=== PATIENT | female | born 1980 | race American Indian/Alaskan Native ===

== ENCOUNTER 2018-04-14 20:48 | Emergency (ER) | payer OTHER ==
[2018-04-14 20:48] VITALS: BMI 34.4
[2018-04-14] MEDS ORDERED: Sodium Chloride 0.9% 1,000 ML IV ONE (23:17)
[2018-04-14] MEDS ORDERED: Albuterol-Ipratrop 3 mg / 0.5 (3 ml) UD INH STA (23:18)
[2018-04-14] MEDS ORDERED: Albuterol-Ipratrop 3 mg / 0.5 (3 ml) UD ONE (23:28)
[2018-04-14 23:31] LABS: BASO # 0.1 K/uL (0.0-0.2); BASO % 1.4 % (0.0-2.0); EOS # 0.2 K/uL (0.0-0.7); EOS % 3.7 % (0.0-4.0); HEMOGLOBIN 9.4 g/dL (11.0-16.0); LYMPH # 1.7 K/uL (1.0-4.3); MEAN CORPUSCULAR HEMOGLOBIN 21.9 pg (27.0-31.0); MEAN CORPUSCULAR HGB CONC 31.6 g/dL (33.0-37.0); MEAN PLATELET VOLUME 8.7 fL (7.2-11.7); MONO # 0.4 K/uL (0.0-0.8); MONO % 8.4 % (0.0-10.0); NEUT # 2.9 K/uL (1.8-7.0); NEUT % 54.5 % (50.0-75.0); RBC 4.28 Mil/uL (3.80-5.20); RED CELL DISTRIBUTION WIDTH 18.6 % (11.5-14.5); WHITE BLOOD COUNT 5.3 K/uL (4.8-10.8)
[2018-04-14 23:50] LABS: ALB/GLOB RATIO 1.4 (1.0-2.1); ALBUMIN 3.9 g/dL (3.5-5.0); BLOOD UREA NITROGEN 10 mg/dL (7-17); CALCIUM 8.7 mg/dl (8.6-10.4); GFR NON-AFRICAN AMERICAN > 60
[2018-04-14 23:51] LABS: ALT/SGPT 43 U/L (9-52); AST/SGOT 32 U/L (14-36)
[2018-04-14 23:52] LABS: B-TYPE NATRIURETIC PEPTIDE 50.7 pg/mL (0-450)
--- NOTE | 2018-04-15 00:08 | C.PDOC ---
History Of Present Illness 37 year old female with PMHx of asthma presents to the ED c/o SOB like her prior asthma attacks. Patient reports she has history of PE that occured after child . Patient is not using any asthma inhalers or anticoagulants at this time. Patient denies fever, chills, CP, palpitations, leg swelling, dizziness. <Duran Padilla - Last Filed: 04/15/18 00:33> History Per: Patient History/Exam Limitations: no limitations Onset/Duration Of Symptoms: Days Current Symptoms Are (Timing): Still Present Initiating Event: Upper Respiratory Illness Quality: "Pain" Current Respiratory Medications: See Home Med List Recent travel outside of the [place]: No Additional History Per: Patient <Duran Padilla - Last Filed: 04/15/18 00:33> <Lidia Vogel - Last Filed: 04/15/18 01:44> Time Seen by Provider: 04/14/18 23:01 Chief Complaint (Nursing): Shortness Of Breath Past Medical History Reviewed: Historical Data, Nursing Documentation, Vital Signs Vital Signs: Last Vital Signs Temp 98.8 F 04/14/18 22:34 Pulse 87 04/14/18 22:34 Resp 16 04/14/18 22:34 BP 140/92 H 04/14/18 22:34 Pulse Ox 100 04/14/18 22:34 - Medical History PMH: Anemia, Asthma Denies: Chronic Kidney Disease Surgical History: No Surg Hx Family History: States: Unknown Family Hx - Social History Hx Tobacco Use: No Hx Alcohol Use: Yes Hx Substance Use: No - Immunization History Hx Tetanus Toxoid Vaccination: No Hx Influenza Vaccination: No Hx Pneumococcal Vaccination: No <Duran Padilla - Last Filed: 04/15/18 00:33> Vital Signs: Last Vital Signs Temp 98.8 F 04/14/18 22:34 Pulse 87 04/14/18 22:34 Resp 16 04/14/18 22:34 BP 140/92 H 04/14/18 22:34 Pulse Ox 100 04/15/18 00:36 <Lidia Vogel - Last Filed: 04/15/18 01:44> Review Of Systems Constitutional: Negative for: Fever, Chills Cardiovascular: Negative for: Chest Pain, Palpitations Respiratory: Positive for: Cough, Shortness of Breath Gastrointestinal: Negative for: Nausea, Vomiting Neurological: Negative for: Weakness, Numbness <Duran Padilla - Last Filed: 04/15/18 00:33> Physical Exam - Physical Exam Appears: Non-toxic, No Acute Distress Skin: Normal Color, Warm, Dry Head: Atraumatic, Normacephalic Eye(s): bilateral: Normal Inspection Oral Mucosa: Moist Neck: Normal ROM, Supple Chest: Symmetrical Cardiovascular: Rhythm Regular Respiratory: Normal Breath Sounds, No Rales, No Rhonchi, No Wheezing Gastrointestinal/Abdominal: Soft, No Tenderness, No Guarding, No Rebound Extremity: Normal ROM, No Tenderness, No Swelling Neurological/Psych: Oriented x3, Normal Speech, Normal Cognition Gait: Steady <Duran Padilla - Last Filed: 04/15/18 00:33> ED Course And Treatment - Laboratory Results Result Diagrams: 04/14/18 23:26 04/14/18 23:26 Lab Interpretation: Abnormal (d dimer 420 H) ECG: Interpreted By Vt ECG Rhythm: Sinus Rhythm ECG Interpretation: Normal Rate From EC O2 Sat by Pulse Oximetry: 100 (ON RA) Pulse Ox Interpretation: Normal - Radiology CXR: Interpreted by Vt CXR Interpretation: Yes: No Acute Disease Reevaluation Time: 00:34 Reassessment Condition: Improved (feels much improved after Duoneb treatments) <Duran Padilla - Last Filed: 04/15/18 00:33> - Laboratory Results Result Diagrams: 04/14/18 23:26 04/14/18 23:26 Pulse Ox Interpretation: Normal Reevaluation Time: 01:43 Reassessment Condition: Improved <Lidia Vogel - Last Filed: 04/15/18 01:44> Medical Decision Making Medical Decision Making: Plan: * EKG * Labs * Duoneb * Solumedrol 125 mg IVP * IV fluids * UA 0100: likely airway dz improved with nebs d-dimer elevated 420, pending CTA signed over to overnight MD to f/u CTA and dispo <Duran Padilla - Last Filed: 04/15/18 00:33> Disposition - Disposition Disposition Time: 01:00 <Duran Padilla - Last Filed: 04/15/18 00:33> Counseled Patient/Family Regarding: Studies Performed, Diagnosis, Need For Followup, Rx Given <Lidia Vogel - Last Filed: 04/15/18 01:44> - Disposition Referrals: Ludwig Summers MD [Staff Provider] - Disposition: HOME/ ROUTINE Condition: FAIR Additional Instructions: Please return if symptoms recur Prescriptions: Albuterol/Ipratropium [Duoneb 3 MG/3 Ml-0.5 MG/3 Ml 3 Ml] 3 ml IH QID PRN #50 neb PRN Reason: Wheezing Prednisone [Deltasone] 20 mg PO DAILY #5 tablet Instructions: Shortness of Breath (Dyspnea) (DC) Forms: [employer] (Gambian) - Clinical Impression Clinical Impression: Shortness of breath, Reactive airway disease - Scribe Statement The provider has reviewed the documentation as recorded by the Scribe Mehrdad Mayer All medical record entries made by the Scribe were at my direction and personally dictated by me. I have reviewed the chart and agree that the record accurately reflects my personal performance of the history, physical exam, medi janie decision making, and the department course for this patient. I have also personally directed, reviewed, and agree with the discharge instructions and disposition. <Duran Padilla E - Last Filed: 04/15/18 00:33> Physician Patient Turnover Patient Signed Over To: Lidia Vogel Handoff Comments: f/u CTA and dispo for Asthma if neg. <Duran Padilla - Last Filed: 04/15/18 00:33>
[2018-04-15 00:55] VITALS: RESP 20
[2018-04-15] MEDS ORDERED: Iodixanol 320 MG/ML 100 ML BOTTLE IV ONE (00:55)
[2018-04-15 01:01] LABS: SQUAMOUS EPITHIAL < 1 /hpf (0-5); URINE BILIRUBIN NEGATIVE (NEGATIVE); URINE CLARITY Clear (Clear); URINE COLOR Yellow (YELLOW); URINE GLUCOSE (UA) NORMAL (Normal); URINE LEUKOCYTE ESTERASE NEG Leu/uL (Negative); URINE PROTEIN NEGATIVE (NEGATIVE); URINE UROBILINOGEN NORMAL mg/dL (0.2-1.0)
[2018-04-15 01:21] LABS: HCG,QUALITATIVE URINE NEGATIVE (NEGATIVE)
[2018-04-15 01:23] LABS: URINE BLOOD 2+ (NEGATIVE)
[2018-04-15 01:45] LABS: OPIATES, UR NEGATIVE (NEGATIVE); PHENCYCLIDINE, UR NEGATIVE (NEGATIVE)
[2018-04-15 01:48] VITALS: BP 138/83; PULSE 83; TEMP 98.3; O2SAT 98
[2018-04-15 02:21] LABS: BARBITURATES, UR NEGATIVE (NEGATIVE); BENZODIAZEPINES, UR NEGATIVE (NEGATIVE)
[2018-04-15 05:25] LABS: MEAN CELL VOLUME 69.4 fL (81.0-99.0)
--- NOTE | 2018-04-15 09:51 | RAD ---
Date of service: 04/14/2018 PROCEDURE: CHEST RADIOGRAPH, 1 VIEW HISTORY: Shortness of breath COMPARISON: None available. FINDINGS: LUNGS: Mild venous congestion. PLEURA: No pneumothorax or pleural fluid seen. CARDIOVASCULAR: Normal. OSSEOUS STRUCTURES: No significant abnormalities. VISUALIZED UPPER ABDOMEN: Normal. OTHER FINDINGS: None. IMPRESSION: Mild venous congestion.
--- NOTE | 2018-04-15 10:15 | CT ---
Date of service: 04/15/2018 PROCEDURE: CT Chest with contrast (Pulmonary Angiogram) HISTORY: sob, h/o PE, D Dimer elevated COMPARISON: 03/25/2016 TECHNIQUE: Axial computed tomography images were obtained of the chest in the pulmonary arterial phase of enhancement. Coronal and sagittal reformatted images were created and reviewed. Intravenous contrast dose: 100 mL Visipaque 320 Radiation dose: Total exam DLP = 537.63 mGy-cm. This CT exam was performed using one or more of the following dose reduction techniques: Automated exposure control, adjustment of the mA and/or kV according to patient size, and/or use of iterative reconstruction technique. FINDINGS: PULMONARY ARTERIES: Unremarkable. No pulmonary embolism. AORTA: No acute findings. No thoracic aortic aneurysm. LUNGS: Unremarkable. No nodule, mass or pulmonary consolidation. PLEURAL SPACES: Unremarkable. No effusion or pneumothorax. HEART: Unremarkable. No cardiomegaly. No significant pericardial effusion. LYMPH NODES: No lymphadenopathy. BONES, CHEST WALL: Unremarkable. No fracture or destructive lesion OTHER FINDINGS: Unremarkable. IMPRESSION: Unremarkable CT pulmonary angiogram. No pulmonary embolus. The preliminary findings for this examination were reported by [facility] at 1:37 a.m. on 04/15/2018. There is concurrence of this report with the preliminary findings.
--- NOTE | 2018-04-15 20:14 | CARD ---
APPROVED REPORT Date of service: 04/14/2018 EKG Measurement Heart [id number] <Conclusion> Normal sinus rhythm Nonspecific T wave abnormality Abnormal ECG
== END 2018-04-15 02:01 | disposition home or self-care (01) ==
LOC: C.ER 20:48
DX: J45.909 Unspecified asthma, uncomplicated (principal); R06.02 Shortness of breath
CPT/HCPCS: 71045; 71275; 80053; 80324; 80345; 80346; 80349; 80353; 80358; 80361; 81001; 83880; 83992; 84484; 84702; 84703; 85025; 85378; 93005; 96361; 96374; 99285; J2930; J7030; Q9967